=== PATIENT | female | born 1980 | race Caucasian/White ===

== ENCOUNTER 2017-04-26 20:03 | Emergency (ER) | payer BC ==
[~2017-04-26] VITALS: Ht 152.4 cm; Wt 63.5 kg
--- NOTE | ~2017-04-26 | EKG ---
[place] [address] [facility] [place] [address] ELECTROCARDIOGRAM REPORT Name: IRENE MELO [id number] Admission: 04/26/17 Attend Phys: Discharge: 04/26/17 Date of : 80 Report #: [id number] THIS REPORT FOR: //name// [facility] ED Test Date: 2017-04-26 Test Time: 20:19:54 Pat Name: IRENE SHETH Department: Room: Gender: F Associate Software Development Engineer: RAYSA : 1980 Requested By: Marlene Hook Order Number: [id number] MD: Keyshawn Barragan Measurements Intervals [place] Rate: 65 P: 25 ID: [id number] QRS: 35 QRSD: 96 T: 18 QT: 393 QTc: 409 Interpretive Statements Sinus rhythm No significant abnormality No previous ECG available for comparison Electronically Signed On 04-28-2017 8:49:34 [employer] by Keyshawn Barragan [email or web address] <ELECTRONICALLY SIGNED> By: Keyshawn Barragan MD, [facility] 04/28/17 0849 2019 18 Keyshawn Barragan MD, FACC /EPI
[2017-04-26] MEDS ORDERED: CLONAZEPAM 0.50.5 M1 PO (20:14)
[2017-04-26] MEDS ORDERED: PAXIL10 MG PO (20:14)
[2017-04-26 20:42] LABS: ABSOLUTE NEUTROPHILS 4.3 thou/uL (1.4-8.2); BASOPHILS 0.8 % (0.0-2.0); EOSINOPHILS 2.4 % (0.0-3.0); HEMATOCRIT 29.6 % (37.0-47.0); HEMOGLOBIN 9.4 gm/dL (12.0-15.0); LYMPHOCYTES 26.2 % (24.0-44.0); MCHC 31.8 g/dL (28.0-37.0); MCV 65.9 fL (80.0-100.0); MONOCYTES 6.1 % (1.0-8.0); PLATELET COUNT 300 thou/uL (150-400); POLYS 64.5 % (36.0-66.0); RBC 4.48 mil/uL (4.20-5.00); RDW 17.1 % (10.5-14.5); WBC 6.6 thou/uL (4.0-11.0)
[2017-04-26 20:51] LABS: ANION GAP 14 mmol/L (7-16); BUN 8 mg/dL (7-18); CALCIUM 9.2 mg/dL (8.5-10.1); CHLORIDE 104 mmol/L (98-107); CO2 24 mmol/L (21-32); CREATININE 0.7 mg/dL (0.6-1.0); GLUCOSE 94 mg/dL (74-106); POTASSIUM 3.7 mmol/L (3.5-5.1); SODIUM 142 mmol/L (136-145)
[2017-04-26 21:00] LABS: TROPONIN-I < 0.04 ng/mL (<0.06)
[2017-04-26 21:03] LABS: ANISOCYTOSIS 2+; HYPOCHROMASIA SLIGHT; LARGE PLATELETS RARE; MICROCYTES 2+
[2017-04-26] MEDS ORDERED: NORCO 5-325 TA1 EACH PO (21:07)
== END 2017-04-26 21:41 | disposition home or self-care (01) ==
LOC: ER 20:03
PROVIDERS: Emergency Medicine
DX: R55 Syncope and collapse (principal); F41.9 Anxiety disorder, unspecified; D64.9 Anemia, unspecified; M54.12 Radiculopathy, cervical region